=== PATIENT | female | born 1960 | race Caucasian/White ===

== ENCOUNTER 2020-07-03 21:01 | Emergency (ER) | payer MEDICAID ==
[~2020-07-03] VITALS: Ht 170.2 cm; Wt 59.9 kg
[~2020-07-03 21:01] MED LIST: FERR325T18 PO; IBUP-1222 PO
--- NOTE | 2020-07-03 22:04 | NUR ---
Patient given discharge instructions and they have confirmed that they understand the instructions. Patient ambulatory with steady gait.
[2020-07-03 22:05] VITALS: BP 132/75
== END 2020-07-03 22:17 | disposition home or self-care (01) ==
LOC: ED 21:30
DX: J01.01 Acute recurrent maxillary sinusitis (principal); B96.89 Other specified bacterial agents as the cause of diseases classified elsewhere; R51.9 Headache, unspecified; Z98.51 Tubal ligation status; Z16.11 Resistance to penicillins; Z87.891 Personal history of nicotine dependence
CPT/HCPCS: 99283